=== PATIENT | male | born 2000 | race Caucasian/White ===

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

== ENCOUNTER 2019-04-01 17:49 | Emergency (ER) | payer OTHER, SELFPAY ==
[2019-04-01 17:51] VITALS: BP 127/67; PULSE 77; RESP 14; TEMP 37.1; O2SAT 97; BMI 41.1
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
[2019-04-01] MEDS: Ibuprofen 600 MG Tablet PO (18:22)
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
== END 2019-04-01 19:00 | disposition home or self-care (01) ==
LOC: ED 18:36
PROVIDERS: Emergency Provider Emergency Medicine; Family Provider Family Medicine; PCP Family Medicine
DX: S50.02XA Contusion of left elbow, initial encounter (principal); S63.502A Unspecified sprain of left wrist, initial encounter; V43.52XA Car driver injured in collision with other type car in traffic accident, initial encounter; Y93.9 Activity, unspecified; Y92.9 Unspecified place or not applicable
CPT/HCPCS: 73080; 73110; 99285

== ENCOUNTER 2021-11-28 19:02 | Emergency (ER) | payer OTHER, SELFPAY ==
[2021-11-28 19:03] VITALS: BP 163/137; PULSE 80; RESP 19; TEMP 36.2; O2SAT 99; BMI 31.7
--- NOTE | 2021-11-28 20:04 | CT_ITS ---
STUDY: CT BRAIN WITHOUT CONTRAST REASON FOR EXAM: Male, 21 years old. Pain RADIATION DOSAGE (If Supplied By Facility): CTDIvol = ( 44.99 ) mGy, DLP = ( 779.24 ) mGycm TECHNIQUE: Transaxial CT imaging of the brain was performed without administration of intravenous contrast material. Individualized dose optimization techniques were used for this CT. COMPARISON: No relevant priors. FINDINGS: Normal soft tissue structures. Normal calvarium. Normal size ventricles and extra-axial spaces for the patient''s age. Normal white matter tracts of the cerebral hemispheres. Normal basal ganglia and thalami. Normal brainstem. Normal cerebellum. There is no intracranial hemorrhage. There are no findings of an acute ischemic infarction. Normal visualized paranasal sinuses. CT/Brain/Head without Contrast IMPRESSION: Normal unenhanced CT scan of the brain. Electronically Signed: Mushtaq Ugarte MD at 20:38 EDT ,
[2021-11-28] MEDS: 0.9% Normal Saline 1,000 ML 999 ML IV (20:15)
[2021-11-28] MEDS: Metoclopramide 10 MG/2 ML Vial IV (20:16)
[2021-11-28] MEDS: DiphenhydrAMINE 50 MG/ML Syringe 25 MG IV (20:16)
--- NOTE | 2021-11-28 20:16 | EX.ED.GENINJ ---
HPI History of Present Illness Chief Complaint: Head Injury Informant: patient Onset/Context/Timing Onset: Days (3) Mechanism/Context: Blunt Injury Quality of Pain: Sharp Location: Frontal Worsened by: Lights, TV Relieved by: Nothing Associated Symptoms Associated Symptoms: Negative for Parasthesias, Weakness, Loss of function, Inability to ambulate, Loss of consciousness or Amnesia Narrative Narrative: Patient presents with head injury that occurred 3 days ago. Patient states he was playing volleyball and was hit in the head by the volleyball. Patient denies any loss of consciousness. Patient states he has been having headaches ever since the injury. Patient describes his pain as sharp. Patient admits to some dizziness but denies any paresthesias or weakness. Patient states his headache is worse with bright lights and with the watching TV. Patient denies any neck or back pain. Patient denies any other injuries. Patient does admit to some mild nausea and vomiting after the injury. [facility] Medical History (Updated 11/28/21 @ 21:[address] Matthew Borrero DO) Diarrhea Knee pain Severe headache Tiredness Allergy/AdvReac Type Severity Reaction Status Date / Time No Known Allergies Allergy Verified 11/28/21 19:05 Surgical History (Updated 11/28/21 @ 20:[address] Matthew Borrero DO) Hx of tonsillectomy Social History Smoking Status: Never smoker ROS ROS ED Constitutional Constitutional ED: Denies chills or fever(s) Eyes Eyes: Denies blurry vision or change in vision ENT ENT ED: Denies rhinorrhea or sore throat Cardiovascular Cardiovascular: Denies chest pain or palpitations Respiratory/Chest Respiratory/Chest: Denies cough or dyspnea Gastrointestinal Gastrointestinal: Reports nausea and vomiting Genitourinary Genitourinary ED: Denies dysuria or hematuria Musculoskeletal Musculoskeletal: Denies back pain or neck pain Integumentary Denies abscess or rash Neurologic Neurologic: Reports headache(s); Denies weakness Allergic/Immunologic Allergic/Immunologic ED: Denies mouth swelling or urticaria EXAM Physical Exam Const Vital Signs: 11/28/21 19:03 11/28/21 19:09 Temperature 97.1 F L Temperature Source Temporal Pulse Rate 80 Respiratory Rate 19 H Respiratory Effort Normal Blood Pressure 163/137 H Blood Pressure Mean 145 Pulse Ox 99 Oxygen Delivery Method Room Air Room Air Positive well nourished and well developed General Appearance ED: well developed and NAD HEENT Reports moist mucous membranes HEENT Narrative: There is mild tenderness along the bridge of the nose. There is some mild tenderness over the occiput. There is no bony crepitance or step-off. There is no edema or ecchymosis. Neck supple and no JVD Resp normal respiratory effort and clear to auscultation bilaterally Cardio regular rate, regular rhythm and no murmurs GI normal to inspection, nondistended, normoactive bowel sounds and non-tender Palpation: soft Extremity normal to inspection General Extremety ED: Negative for edema or tenderness General Extremity: Negative for edema Neuro oriented x3, CN's II-XII intact bilaterally and no sensory deficits noted Sensorium / Orientation: alert Motor Exam: strength 5/5 throughout Psych mental status grossly normal Skin no rashes or lesions noted MDM MDM MDM Narrative Medical decision making narrative: Patient was given IV fluids, Reglan, and Benadryl. CT scan of the brain was obtained. There is no acute intracranial abnormality. This was interpreted by the radiologist and reviewed by myself. Patient is feeling somewhat better on reevaluation. Patient was given a dose of Toradol here. Patient was instructed to rest in a dark quiet room. Patient was given head injury instructions. Patient was instructed to follow-up with his primary care physician in 5 to 7 days. Patient understood and was agreeable with the plan. All questions were answered. Radiography Diagnostic Testing: Clinical Impression(s) from Imaging Studies Brain CT 11/28/21 20:04 IMPRESSION: Normal unenhanced CT scan of the brain. Electronically Signed: Mushtaq Ugarte MD at 20:38 EDT , Discharge Plan Triage Chief Complaint: Head Injury ED Provider: Matthew Borrero Dx/Rx/DC Orders Clinical Impression: Closed head injury, Headache Instructions: ED Head Injury (Adult) Primary Care Provider: Brennen العراقي Referrals: Brennen العراقي DO [Primary Care Provider] - 5-7 Days Disposition Disposition: Home, Self Care
[2021-11-28] MEDS: Ketorolac 30 MG/ML Syringe IV (21:31)
[2021-11-28 21:41] VITALS: BP 154/60; PULSE 78; RESP 18; O2SAT 96
== END 2021-11-28 21:42 | disposition home or self-care (01) ==
PROVIDERS: Emergency Provider Emergency Medicine; PCP Family Medicine; Visit Provider Emergency Medicine
DX: S09.90XA Unspecified injury of head, initial encounter (principal); W21.06XA Struck by volleyball, initial encounter; Y93.68 Activity, volleyball (beach) (court)
CPT/HCPCS: 70450; 96361; 96374; 96375; 99283; J7030